=== PATIENT | female | born 1985 | race Caucasian/White ===

== ENCOUNTER 2020-04-15 08:33 | Outpatient (REF) | payer OTHER, SELFPAY ==
[2020-04-15 09:07] LABS: MANUAL DIFF FLAG NO
[2020-04-15 09:12] LABS: Basophils Absolute Auto 0.1 X10*3/uL (0.0-0.2); Basophils Percent Auto 0.4 % (0-2); Eosinophils Absolute Auto 0.2 X10*3/uL (0.0-0.4); Eosinophils Percent Auto 1.5 % (0-4); Hematocrit 41.5 % (37-47); Hemoglobin 13.1 g/dl (12.0-16.0); Imm Gran Abs Auto 0.06 X10*3/uL (0.00-0.03); Imm Gran Pct Auto 0.5 % (0.0-0.4); Lymphocytes Absolute Auto 2.7 X10*3/uL (1.2-4.9); Lymphocytes Percent Auto 21.2 % (20-40); Mean Corpuscular HGB Conc 31.6 g/dl (31.0-35.0); Mean Corpuscular Hemoglobin 25.7 pg (27.0-33.0); Mean Corpuscular Volume 81.4 fL (80-98); Mean Platelet Volume 11.5 fL (9.4-12.3); Monocytes Absolute Auto 0.7 X10*3/uL (0.1-1.2); Neutrophils Absolute Auto 9.2 X10*3/uL (2.0-8.3); Neutrophils Percent Auto 71.4 % (45-73); Platelet Count 257 X10*3/uL (160-400); Red Cell Distribution Width 14.6 % (11.0-16.0); White Blood Count 12.9 X10*3/uL (4.8-10.8)
[2020-04-15 09:51] LABS: Alanine Aminotransferase 15 U/L (0-31); Albumin Level 3.9 g/dL (3.5-5.0); Alkaline Phosphatase 83 U/L (39-117); Anion Gap 12 (12-20); Aspartate Amino Transferase 12 U/L (5-31); Bilirubin Total 0.3 mg/dL (0.0-1.0); Blood Urea Nitrogen 7 mg/dL (9-16); Calcium 8.8 mg/dL (8.4-10.2); Carbon Dioxide 28 mmol/L (22-29); Chloride 105 mmol/L (96-108); Cholesterol 200 mg/dL; Estimated Glomerular Filt Rate > 60; Glucose Fasting 107 mg/dL (60-99); HDL Cholesterol 33 mg/dL; LDL Cholesterol Calculated 152 mg/dl; Potassium 4.4 mmol/l (3.3-5.1); Sodium 141 mmol/L (135-145); Total Protein 7.2 g/dL (6.5-8.0); Triglycerides 78 mg/dL
[2020-04-15 10:16] LABS: Thyroid Stimulating Hormone 0.55 uIU/mL (0.32-4.0)
== END 2020-04-15 08:34 | disposition home or self-care (01) ==
LOC: HO.LAB 08:33
PROVIDERS: PCP Internal Medicine; Visit Provider Internal Medicine
DX: E03.9 Hypothyroidism, unspecified (principal); E11.9 Type 2 diabetes mellitus without complications; Z00.00 Encounter for general adult medical examination without abnormal findings
CPT/HCPCS: 36415; 80053; 80061; 84443; 85025

== ENCOUNTER 2021-07-25 14:44 | Emergency (ER) | payer OTHER, SELFPAY ==
[2021-07-25 14:56] VITALS: BP 136/91; PULSE 94; RESP 16; TEMP 36.1; O2SAT 100; BMI 39.4
--- NOTE | 2021-07-25 15:06 | ED_ITS ---
HPI - Wound/Laceration General Chief Complaint: Wound/Laceration Stated Complaint: thumb laceration Time Seen by Provider: 07/25/21 14:51 Source: patient Mode of arrival: ambulatory Limitations: no limitations History of Present Illness HPI narrative: 36 yo female right hand dominant here with laceration to left thumb after opening a present with a pocketknife and cutting her finger. Unknown last tetanus. No numbness, tingling, weakness, fevers, chills. Related Data Home Medications Medication Instructions Recorded Confirmed No Known Home Meds 03/12/20 06/18/20 Allergies Allergy/AdvReac Type Severity Reaction Status Date / Time No Known Allergies Allergy Verified 06/18/20 08:27 Review of Systems Review of Systems: Yes all other systems are reviewed and are negative Constitutional: Constitutional: Reports no additional constitutional complaints, Denies body ache(s), Denies chills, Denies fever(s), Denies headache(s) and Denies weakness Eyes: Eyes: Reports no additional eye complaints and Denies change in vision ENT: Reports system reviewed and no additional complaints, except as do cumented, Denies dizziness, Denies headache(s), Denies nasal congestion, Denies nasal discharge and Denies neck pain Cardiovascular: Cardiovascular: Reports no additional cardiovascular complaints, Denies chest pain, Denies leg edema and Denies dyspnea Respiratory: Respiratory: Reports no additional respiratory complaints, Denies cough and Denies dyspnea Gastrointestinal: Gastrointestinal: Reports no additional gastrointestinal complaints, Denies abdominal pain, Denies diarrhea, Denies nausea and Denies vomiting Genitourinary: Genitourinary: Reports no additional female genitourinary complaints and Denies urinary incontinence Musculoskeletal: Musculoskeletal: Reports no additional musculoskeletal complaints, Denies back pain, Denies arthralgias, Denies joint swelling, Denies neck pain, Denies numbness and Denies tingling Integumentary/Breasts: Skin/Breast: Reports system reviewed and no additional complaints, except as docu and Denies rash Comments: +lac Neurologic: Reports system reviewed and no additional complaints, except as documented, Denies Abnormal speech present, Denies dizziness, Denies headache(s), Denies numbness, Denies tingling and Denies weakness PMFSH Past Medical History Attestation statement: The following information was validated with the patient. Source: old records reviewed and nursing notes reviewed Medical History Varicose veins of bilateral lower extremities with pain Surgical History History of cholecystectomy History of excision of mass Family History Family History Father Diabetes Mother Arthritis Sister Carpal tunnel syndrome Brother Asthma Family/Other Diabetes Asthma Hypertension Social History Social History Alcohol intake: never Advance Directives: No Advance Directives Information Provided: No Patient : No Physical Exam Vital Signs: Vital Signs: Last Vital Signs Temp 97.0 F 07/25/21 14:56 Pulse 94 07/25/21 14:56 Resp 16 07/25/21 14:56 BP 136/91 H 07/25/21 14:56 Pulse Ox 100 07/25/21 14:56 BMI result Body Mass Index 39.4 Const: General: cooperative, healthy appearing, comfortable and no acute distress Orientation/consciousness: patient oriented x3 Limitations: no limitations HEENT: Head: Yes normal to inspection Ears: hearing grossly normal bilaterally General nose exam: Normal external nose present Face and sinus: Yes normal facial exam Mouth: Normal oral and palatal mucosa present Throat: Yes posterior oropharynx normal Eyes: General: appearance normal, both eyes and all related structures Pupils: Equal, round and reactive pupils present Neck: Neck: Yes normal visual inspection Chest: Chest palpation & inspection: normal inspection of the chest Resp: Effort & Inspection: normal respiratory effort Auscultation: clear to auscultation bilaterally Cardio: Rate: regular rate Rhythm: regular rhythm Peripheral pulses: Peripheral pulses 2+ throughout GI: Inspection: Yes normal to inspection Palpation (GI): Soft to palpation and nontender Auscultation: normal bowel sounds Back/Spine/Pelvis: Thoracic/Lumbar Spine: thoracic and lumbar spine normal to inspection Skin: General skin exam: no rashes or lesions noted Neuro: General: patient oriented x3, no focal motor deficits and normal sensation to monofilament Cranial nerves: Yes Equal, round and reactive pupils present Cognition (Neuro): normal cognition Speech: No Abnormal speech present Gait exam (Neuro): Normal gait present Motor exam (neuro): 5/5 motor strength present throughout Extrem: General: Yes normal to inspection Hand/finger images: 1. 2cm laceration. FROM. Bleeding controlled Course Course Course Narrative: 36 yo female right hand dominant here with laceration to left thumb after using a knife to open her daughters present and slipping. Superfical 2cm laceration noted. Soaked hand for 30 minutes in betadine/NS soak. After removed topical medical glue applied to the digit. Reviewed worrisome signs and symptoms when to return to the emergency. Comfortable discharge home. MDM - Wound/Laceration Medical Records Attestation: I reviewed the patient's medical records. Lab Data Attestation: I reviewed the patient's lab results. Procedures Laceration Laceration 1: Size (cm): 2 Description: linear Depth: simple, single layer Pre-repair: wound explored and irrigated extensively Skin layer closed with: other (skin glue ) Discharge Plan Discharge Clinical Impression: Laceration Patient Disposition: Home, Self-Care Instructions: Finger Laceration (ED) Additional Instructions: We used skin glue on your finger. Do not pick at it You may wash her hands normally but do not scrub at the digit You also received a tetanus shot Prescriptions: No Action No Known Home Meds 0RF Referrals: Vitor Diaz MD [Primary Care Provider] - 5 days (as needed) Interventions: ED Discharge Assessment Last Done: 07/25/21 15:41 Discharge Date/Time: 07/25/21 15:43
[2021-07-25] MEDS: Diphth,Pertus(ACell),Tet Adult 0.5 ML SYRINGE IM (15:21)
== END 2021-07-25 15:43 | disposition home or self-care (01) ==
LOC: HO.ED 15:14
PROVIDERS: Emergency Provider Emergency Medicine; PCP Internal Medicine
DX: S61.012A Laceration without foreign body of left thumb without damage to nail, initial encounter (principal); W26.0XXA Contact with knife, initial encounter; Y93.89 Activity, other specified; Y92.9 Unspecified place or not applicable; Y99.9 Unspecified external cause status
CPT/HCPCS: 12001; 90471; 90715; 99283; 99284

== ENCOUNTER 2022-03-03 09:41 | Emergency (ER) | payer OTHER, SELFPAY ==
[2022-03-03 10:31] VITALS: BP 158/90; PULSE 78; RESP 16; TEMP 36.6; O2SAT 99; BMI 38.3
--- NOTE | 2022-03-03 11:02 | ED.DENTAL ---
HPI - Dental/Oral General Chief complaint: Dental/Oral Stated complaint: ? Dental Abscess Sore Throat Time Seen by Provider: 03/03/22 10:53 History of Present Illness HPI Narrative: Patient complains of 2 days of worsening pain and swelling around a broken infected tooth in the right upper molar area The tooth has been broken for a long time, she does not have a dentist and is afraid of going to the dentist, she has no swelling under her tongue she has no difficulty breathing or swallowing has had no fever Related Data Previous Rx's Medication Instructions Recorded nicotine 21 mg/24 hr daily 1 patch transdermal DAILY #28 ea 07/30/21 transdermal patch acetaminophen 500 mg tablet 1,000 mg PO QID PRN pain #30 tabs 03/03/22 amoxicillin 875 mg-potassium 1 tab PO Q12H 7 days #14 tabs 03/03/22 clavulanate 125 mg tablet ibuprofen 600 mg tablet 600 mg PO Q6H PRN pain #20 tabs 03/03/22 lorazepam 1 mg tablet (Ativan) 1 mg PO BID PRN anxiety #7 tabs 03/03/22 oxycodone 5 mg tablet 5 mg PO Q6H PRN pain #14 tabs 03/03/22 Allergies Allergy/AdvReac Type Severity Reaction Status Date / Time No Known Allergies Allergy Verified 03/03/22 10:35 Review of Systems Review of Systems: Positive for dental pain and swelling Negative no fever no chills no dizziness or weakness no fainting no feeling faint no headache no neck pain no chest pain no shortness of breath no difficulty breathing or swallowing no sore throat no rash Yes all other systems are reviewed and are negative PMFSH Past Medical History Source: nursing notes reviewed Medical History Varicose veins of bilateral lower extremities with pain Surgical History History of cholecystectomy History of excision of mass Family History Family History Father Diabetes Mother Arthritis Sister Carpal tunnel syndrome Brother Asthma Family/Other Diabetes Asthma Hypertension Social History Social History Housing: Apartment Alcohol intake: never Patient Tobacco Use Status: Current everyday Tobacco user Tobacco use type: Cigarette Cigarette Packs Per Day: 0.5 e-Cigarette/Vaping Use: Never Used Second Hand Smoke Exposure: No Advance Directives: No Advance Directives Information Provided: Yes service: No Current occupational status: employed Current occupational exposures/hazards: No Cognitive needs: No Hearing needs: No Vision needs: Yes Physical Exam Vital Signs: Vital Signs: Last Vital Signs Temp 97.8 F 03/03/22 10:31 Pulse 78 03/03/22 10:31 Resp 16 03/03/22 10:31 BP 158/90 H 03/03/22 10:31 Pulse Ox 99 03/03/22 10:31 O2 Del Method 03/03/22 10:31 BMI result Body Mass Index 38.3 General appearance no acute distress Dental exam there is a broken tooth with some mild swelling in the upper right molar there was no fluctuant abscess to drain but there was a small opening with a small quantity of pus draining, there is facial swelling but no redness in the area of the right upper maxilla there is no impairment of breathing and swallowing there is no trismus there is no swelling or tenderness under the tongue, voice is normal The pharynx is clear no redness swelling or exudate, mucous membranes moist Neck is supple Respiratory no distress Extremities full range of motion x4 Skin no rash Course Course Course Narrative: Patient was treated with antibiotic for a draining dental abscess, given a list of dentists to follow up, she does have a fear of dentist so I wrote her for some Ativan as for her upcoming dental visits and patient was discharged Medications Administered Discontinued Medications Generic Name Dose Route Start Last Admin Trade Name Lora PRN Reason Stop Dose Admin Amoxicillin/Clavulanate Potassium 875 mg 03/03/22 10:59 03/03/22 11:08 Amoxicillin/Potassium Clav 875 Mg Tablet PO 03/03/22 11:00 875 mg ONCE ONE Administration Ibuprofen 600 mg 03/03/22 10:59 03/03/22 11:07 Ibuprofen 600 Mg Tablet PO 03/03/22 11:00 600 mg ONCE ONE Administration Oxycodone HCl 5 mg 03/03/22 10:59 03/03/22 11:08 Oxycodone Hcl Immed Release 5 Mg Tablet PO 03/03/22 11:00 5 mg ONCE ONE Administration Discharge Plan Discharge Clinical Impression: Dental abscess Patient Disposition: Home, Self-Care Additional Instructions: The infected tooth is draining a small amount of pus, rinse with salt water you can gently massage the area Follow closely with dentist Return any time for worse pain and swelling, difficulty swallowing, swelling under the tongue, fever, any sign of worsening infection Prescriptions: New amoxicillin-pot clavulanate 875-125 mg tablet 1 tab PO Q12H 7 Days Qty: 14 0RF acetaminophen 500 mg tablet 1,000 mg PO QID PRN (Reason: pain) Qty: 30 0RF ibuprofen 600 mg tablet 600 mg PO Q6H PRN (Reason: pain) Qty: 20 0RF oxycodone 5 mg tablet 5 mg PO Q6H PRN (Reason: pain) Qty: 14 0RF Rx Instructions: Partial Fill upon patient request. lorazepam [Ativan] 1 mg tablet 1 mg PO BID PRN (Reason: anxiety) Qty: 7 0RF Rx Instructions: To be used before dental visits for anxiety, may cause drowsiness so no driving for 6 hours after taking this medication No Action nicotine 21 mg/24 hr patch 24 hour 1 patch transdermal DAILY Qty: 28 4RF Interventions: ED Discharge Assessment Last Done: 03/03/22 11:36 Discharge Date/Time: 03/03/22 11:40
[2022-03-03] MEDS: Ibuprofen 600 MG TABLET PO (11:07)
[2022-03-03] MEDS: oxyCODONE HCl Immed Release 5 MG TABLET PO (11:08)
[2022-03-03] MEDS: Amoxicillin/Potassium Clav 875 MG TABLET PO (11:08)
--- OUTSIDE RECORDS SUMMARY | 2022-03-03 11:16 | XMS_ITS | Continuity of Care Document ---
:1985 Author Organization [facility] Address [address] [place] [address]- Care Team Providers Name Role Phone Not on Staff, PCP Primary Care Physician Unavailable En[place] [facility] [place] 07/02/20 - 08/23/20 [facility] [address] [place] [id number] Attending Physician: Baltazar Hogan MD Admitting Physician: Baltazar Hogan MD Referring Physician: Baltazar Hogan MD Allergies, Adverse Reactions, Alerts No Known Medication Allergies Medications Albuterol 90 mcg Inhaler PRN, Maintenance, 05/01/14 15:50:01 Start Date: 05/01/14 Status: OrderedIbuprofen PRN, Maintenance, as needed for pain, 05/01/14 15:51:15 Start Date: 05/01/14 Status: OrderedTylenol Caplet = 650 mg, By Mouth, Every 4 hours, PRN as needed for pain, 0 Refills, Maintenance, 05/01/14 15:50:40 Start Date: 05/01/14 Status: Ordered Social History Social History Type Response Smoking Status Current every day smoker entered on: 05/17/14 Sex
== END 2022-03-03 11:40 | disposition home or self-care (01) ==
PROVIDERS: Emergency Provider Emergency Medicine; PCP Internal Medicine
DX: K04.7 Periapical abscess without sinus (principal); Z79.899 Other long term (current) drug therapy
CPT/HCPCS: 41800; 99283

== ENCOUNTER 2023-01-27 11:31 | Outpatient (AMB) | payer OTHER, SELFPAY ==
[2023-01-27 11:46] VITALS: BP 126/82; PULSE 88; O2SAT 96; BMI 40.7
--- NOTE | 2023-01-27 11:46 | MHC.PC.OV ---
Vital Signs 01/27/23 11:46 Height 5 ft 4 in Weight 237 lb BMI 40.7 BP 126/82 Blood Pressure Location Lt brachial Position Sitting Pulse 88 Pulse Source Pulse Oximeter Temp Source Skin Pulse Oximetry (%) 96 Oxygen Delivery Method Room Air Intake Visit Reasons: Transfer of care tara/ Rodrigue on neck Project Facilitator Required: No Allergies No Known Allergies Allergy (Verified 01/27/23 11:58) Medication List - Last Reconciled 01/27/23 by ÁNGEL Plummer No Known Home Meds Tobacco use date assessed: 01/27/23 Dental Screening Dental Screen Date: 01/27/23 Did you have a dental visit in the last 12 months?: No Did you have a dental problem in the last 6 months where you did not have access to dental care?: No HPI Transfer of care tara/ Rodrigue on neck HPI Details Patient is a 37-year-old female who presents today to transfer care from Dr. Diaz. Medical history significant for varicose veins of bilateral lower extremities-would like to be seen by vascular provider, obesity-interested in weight management referral, depression-reports over eating lately-interested in pharmacological intervention-would like to see counseling-denies SI or HI, anxiety, ongoing right knee pain-reports she had referral for physical therapy although she did not go-would like to have new referral for PT-reports taking [id number] ibuprofen with minimal improvement in pain-reports pain is worse with walking and radiate down to her leg- denies injury. In addition, patient reports that in 2013 mass was removed from the right side of her face by ENT specialist, patient reports that she started feeling bilateral neck masses lately as well for the past 1 year, also reports random sharp pains her neck and ears. No shortness of breath or chest pain. [facility] Medical History Varicose veins of bilateral lower extremities with pain Surgical History History of excision of mass History of cholecystectomy Family History Father Diabetes Mother Arthritis Sister Carpal tunnel syndrome Brother Asthma Family/Other Diabetes Asthma Hypertension Social History Housing: Apartment Alcohol intake: never Patient Tobacco Use Status: Current everyday Tobacco user Tobacco use type: Cigarette Cigarette Packs Per Day: 0.5 e-Cigarette/Vaping Use: Never Used Second Hand Smoke Exposure: No service: No Current occupational status: employed Current occupational exposures/hazards: No Cognitive needs: No Hearing needs: No Vision needs: Yes Questionnaire PHQ-9 Over the last 2 weeks, how often have you been bothered by any of the following problems? 1. Little interest or pleasure in doing things: several days 2. Feeling down, depressed, or hopeless: several days 3. Trouble falling or staying asleep, or sleeping too much: more than half the days 4. Feeling tired or having little energy: not at all 5. Poor appetite or overeating: more than half the days 6. Feeling bad about yourself - or that you are a failure or have let yourself or your family down: not at all 7. Trouble concentrating on things, such as reading the newspaper or watching television: several days 8. Moving or speaking so slowly that other people could have noticed. Or the opposite - being so fidgety or restless that you have been moving around a lot more than usual: not at all 9. Thoughts that you would be better off or of hurting yourself in some way: not at all Total score: 7 Depression Screening Interpretation: Positive Depression Screening Follow-up: New Medication prescribed Depression Screening Done: Yes 58608 - PHQ-9 Billing: Yes Source: Developed by Drs. Jose Angel Blanc, Angela Rowan, Steven Mo and colleagues, with an educational balaji from [employer]. Thrive Questionnaire Date Thrive assessed: 01/27/23 I am a: Patient What is your living situation today?: I have a steady place to live Within the past 12 months, did the food you bought not last and you didn't have the money to get more?: Never true Within the past 12 months, did you worry whether your food would run out before you got money to buy more?: Never true Do you have trouble paying for medicines?: No Do you have trouble getting transportation to medical appointments?: No Do you have trouble paying your heating and electricity bill?: No Do you have trouble taking care of your child, family member or friend?: No Do you have trouble with day-to-day activities such as bathing, preparing meals, shopping, managing finances, etc.?: No Are you currently unemployed and looking for a job?: No Are you interested in more education?: No Currently or been in a relationship where the following occur: no concerns reported AUDIT C Alcohol Use Questionnaire (AUDIT-C) 1. How often do you have a drink containing alcohol?: Never Total Score: 0 Score Reviewed/Action Taken: No ASHLEE-7 AMB Questionnaire ASHLEE-7 Date ASHLEE - 7 assessed: 01/27/23 Feeling nervous, anxious, or on edge: 3 = Nearly every day Not being able to stop or control worryin = Nearly every day Worrying too much about different things: 2 = More than half the days Trouble relaxin = Several days Being so restless that it is hard to sit still: 1 = Several days Becoming easily annoyed or irritable: 1 = Several days Feeling afraid as if something awful might happen: 0 = Not at all Total ASHLEE-7 score (0-4 normal; 5-9 mild; 10-14 moderate; 15-21 severe): 11 Source: Developed by Drs. Jose Angel Blanc, Angela Rowan, Steven Mo and colleagues, with an educational balaji from [employer]. ASHLEE-7 Assessment Billing ASHLEE-7 Assessment Tool: ASHLEE-7 Assessment 91058 Review of Systems Const Denies body aches, Denies chills, Denies fever(s) and Denies headache(s) Eyes Denies change in vision ENT Denies dizziness, Denies otalgia, Denies headache(s), Denies nasal discharge, Denies sinus pain and Denies sore throat Card Denies chest pain, Denies edema, Denies lightheadedness and Denies dyspnea Resp Denies cough, Denies dyspnea and Denies wheezing GI Denies constipation, Denies diarrhea, Denies nausea and Denies vomiting Denies dysuria Musc Denies myalgias and Reports arthralgias Skin/Breast Reports as per HPI and Denies rash Neuro Denies dizziness and Denies headache(s) Aller/Immun Denies wheezing Physical exam (Primary Care) Vital Signs: Last Vital Signs Pulse 88 01/27/23 11:46 BP 126/82 01/27/23 11:46 Pulse Ox 96 01/27/23 11:46 Oxygen Delivery Method Room Air 01/27/23 11:46 BMI result Body Mass Index 40.7 Tobacco/Smoking Status: Tobacco use Status Tobacco use date assessed 01/27/23 01/27/23 11:55 Patient Tobacco Use Status Current everyday Tobacco 01/27/23 11:55 Tobacco use type Cigarette 01/27/23 11:55 e-Cigarette/Vaping Use Never Used 01/27/23 11:55 PHQ-9: PHQ-9 Score PHQ-9: Total score 7 01/27/23 11:55 Depression Screening Interpretation: Positive Depression Screening Follow-up: New Medication prescribed Thrive Assessment: Date of Thrive Assessment Date Thrive assessed 01/27/23 01/27/23 11:55 Currently or been in a relationship where the following occur: no concerns reported Const General: cooperative and no acute distress Orientation/consciousness: patient oriented x3 HENMT Head: Yes normocephalic and Yes atraumatic Ears: TM's normal bilaterally Face and sinus: Yes sinuses nontender Mouth: oropharynx normal and moist mucous membranes Throat: Yes posterior oropharynx normal Eyes General: appearance normal, both eyes and all related structures Pupils: Equal, round and reactive pupils present EOM: EOMs intact bilaterally Neck Neck: Yes normal visual inspection, Yes full ROM and Yes no lymphadenopathy Thyroid: Thyroid normal Neck images: 1. Left lateral neck about 1 cm nontender lump noted, skin is intact 2. Right lateral neck scar noted from previous surgery, no palpable lump noted, although patient reports she can feel a lump there Resp Effort & Inspection: normal respiratory effort and able to speak in complete sentences Auscultation: clear to auscultation bilaterally, no crackles, no rales, no rhonchi and no wheezes Cardio Rate: regular rate Rhythm: regular rhythm Heart sounds: S1 normal heart sound present, S2 normal heart sound present and no murmurs GI Palpation (GI): Soft to palpation, not firm, nontender, no guarding, not rigid and no hepatosplenomegaly Auscultation: normal bowel sounds General: No CVA tenderness Back/Spine/Pelvis Back: No CVA tenderness Skin Other: Right lower extremity with varicose veins noted General skin exam: no rashes or lesions noted Neuro General: patient oriented x3 Cranial nerves: Yes Equal, round and reactive pupils present Gait exam (Neuro): Normal gait present Extrem General: Yes full ROM and No edema Right lower extremity: knee Details: normal to inspection, tenderness (Lateral aspect) and normal ROM; no swelling, no ecchymosis, no crepitus, no deformity and no unusual warmth Assessment and Plan Assessment & Plan (1) Right knee pain: Code(s): M25.561 - Pain in right knee Plan: Suspect musculoskeletal in origin Physical therapy referral Patient is to continue ibuprofen 600 mg every 8 hours as needed Encouraged heat/cold packs p.r.n. (2) Lump of skin: Comment: neck Code(s): R22.9 - Localized swelling, mass and lump, unspecified Plan: 1. Left lateral neck about 1 cm nontender lump noted, skin is intact 2. Right lateral neck scar noted from previous surgery, no palpable lump noted, although patient reports she can feel a lump there Will obtain neck ultrasound (3) Anxiety: Code(s): F41.9 - Anxiety disorder, unspecified Plan: Same as below (4) Depression: Code(s): F32.A - Depression, unspecified Qualifiers: Depression Type: other depression Qualified Code(s): F32.89 - Other specified depressive episodes Plan: Start sertraline 25 mg daily-educated about possible adverse reactions and when to notify provider Counseling referral Follow-up in 6 weeks (5) Obesity: Code(s): E66.9 - Obesity, unspecified Qualifiers: Obesity type: due to excess calories Obesity classification: adult class 3 (BMI >= 40) Serious obesity comorbidity presence: without serious comorbidity Body mass index: BMI 40.0-44.9 Qualified Code(s): E66.01 - Morbid (severe) obesity due to excess calories; Z68.41 - Body mass index [BMI] 40.0-44.9, adult Plan: Weight management referral Encouraged healthy food choices and exercise as tolerated (6) Varicose veins of bilateral lower extremities with pain: Code(s): I83.813 - Varicose veins of bilateral lower extremities with pain Plan: Vascular surgery referral for an evaluation and treatment Orders: Orders PT Evaluation and Treatment Today M25.561 - Pain in right knee TSH reflex Free T4 Today F32.A - Depression, unspecified Comprehensive [place]. Panel Fast Today F32.A - Depression, unspecified US soft tiss head and/or neck Today R22.9 - Localized swelling, mass and lump, unspecified Vitamin D 25-OH Total Today F32.A - Depression, unspecified Vitamin B12 and Folate Today F41.9 - Anxiety disorder, unspecified Lipid Panel Today F32.A - Depression, unspecified Complete Blood Count Auto Diff Today F32.A - Depression, unspecified Referrals Counseling Referral F32.A - Depression, unspecified, F41.9 - Anxiety disorder, unspecified Medical Weight Management Referral E66.9 - Obesity, unspecified Vascular Surgery Referral I83.813 - Varicose veins of bilateral lower extremities with pain Medications: New ibuprofen 600 mg PO Q8H PRN 30 tabs 0RF pain M25.561 - Pain in right knee sertraline 25 mg PO DAILY 30 tabs 1RF F32.A - Depression, unspecified, F41.9 - Anxiety disorder, unspecified Coding Level of Care Code Est Pt Level 4 (47006) Diagnoses Right knee pain M25.561 Lump of skin R22.9 Anxiety F41.9 Other depression F32.89 Depression Type: other depression Class 3 severe obesity due to excess calories without serious comorbidity with body mass index (BMI) of 40.0 to 44.9 in adult E66.01; Z68.41 Obesity type: due to excess calories Obesity classification: adult class 3 (BMI >= 40) Serious obesity comorbidity presence: without serious comorbidity Body mass index: BMI 40.0-44.9 Varicose veins of bilateral lower extremities with pain I83.813 Additional Codes ASHLEE-7 Assessment Billing - ASHLEE-7 Assessment Tool: ASHLEE-7 Assessment 79374 ([id number])
== END 2023-01-27 12:19 | disposition home or self-care (01) ==
PROVIDERS: PCP Nurse Practitioner Family; Visit Provider Nurse Practitioner Family
DX: M25.561 Pain in right knee (principal); E66.01 Morbid (severe) obesity due to excess calories; Z68.41 Body mass index [BMI] 40.0-44.9, adult; R22.9 Localized swelling, mass and lump, unspecified; F41.9 Anxiety disorder, unspecified; F32.89 Other specified depressive episodes; I83.813 Varicose veins of bilateral lower extremities with pain
CPT/HCPCS: 99214

== ENCOUNTER 2023-02-14 15:29 | Outpatient (REF) | payer OTHER, SELFPAY ==
--- NOTE | ~2023-02-14 | US_ITS ---
EXAMINATION: US SOFT TISSUE NECK CLINICAL INFORMATION: Bilateral neck lumps as indicated by patient. COMPARISON: None available. TECHNIQUE: Ultrasound of the neck soft tissues is performed with high- frequency olvera-scale imaging and color Doppler. FINDINGS: Targeted ultrasound images were obtained by the marine welder of the area of concern as indicated by the patient in the right neck at level 2 and at the left neck at level 2. Radiologist was not in attendance. Images were later provided for interpretation. BILATERAL NECK SOFT TISSUES: Right neck level 2 node measures 2.4 x 1.0 x 1.8 cm and demonstrates a fatty hilum, normal cortical thickness. Left neck level 2 nodes measure 1.5 x 0.5 x 0.9 cm and 1.4 x 0.9 x 1.8 cm. These nodes demonstrate echogenic mackenzie and normal cortical thickness. US/US soft tiss head and/or neck IMPRESSION: Prominent bilateral nodes in the bilateral areas of concern indicated by the patient in the bilateral neck regions at level 2. Correlation with clinical exam recommended to determine further management. Follow up ultrasound in 3 months recommended.
== END 2023-02-14 15:30 | disposition home or self-care (01) ==
LOC: HO.US 15:29
PROVIDERS: PCP Nurse Practitioner Family; Visit Provider Nurse Practitioner Family
DX: R22.9 Localized swelling, mass and lump, unspecified (principal)
CPT/HCPCS: 76536

== ENCOUNTER 2023-03-22 09:10 | Outpatient (AMB) | payer OTHER, SELFPAY ==
--- NOTE | 2023-03-22 09:25 | A.OFFVIS_ITS ---
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 Does have some buldging VV that are rope like on Right LE. States bilateral LE swelling. Started 10 years ago, worsening as the years go on. 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 Complaints include pain over varicosities, swelling of lower extremities, cramping, fatigue, and heaviness of the lower extremities. It has been affecting there daily activities including walking. It is noted more so in right leg. Of note continues to smoke a half pack per day and is nondiabetic Patient denies any previous venous surgery or injections. Patient denies any history of DVT/ PE. Patient denies any history of phlebitis. Trial of compression includes - [id number] They now present for vascular evaluation regarding their varicose veins. [facility] Medical History Varicose veins of bilateral lower extremities with pain Surgical History History of excision of mass History of cholecystectomy Family History Father Diabetes Mother Arthritis Sister Carpal tunnel syndrome Brother Asthma Family/Other Diabetes Asthma Hypertension Social History Housing: Apartment Alcohol intake: never Patient Tobacco Use Status: Current everyday Tobacco user Tobacco use type: Cigarette Cigarette Packs Per Day: 0.5 e-Cigarette/Vaping Use: Never Used Second Hand Smoke Exposure: No service: No Current occupational status: employed Current occupational exposures/hazards: No Cognitive needs: No Hearing needs: No Vision needs: Yes Review of Systems Const Reports as per HPI ENT Reports no additional complaints Card Denies chest pain, Denies chest pain at rest and Denies chest pain with activity Resp Denies chest congestion and Denies cough GI Reports no additional complaints Musc Details: pain over varicosities, aching of lower extremities, swelling, cramping, heaviness and tiredness, itching Denies abnormal gait Skin/Breast Reports pruritus and Denies wounds Neuro Reports no additional complaints and Denies abnormal gait Psych Denies no additional complaints Physical Exam Vital Signs: BMI result Body Mass Index 40.7 Const General: cooperative, healthy appearing and comfortable Orientation/consciousness: oriented to person, oriented to place and oriented to time Neck Carotids: no bruits Chest Chest palpation & inspection: normal inspection of the chest and normal palpation of entire chest wall Resp Effort & Inspection: normal respiratory effort and able to speak in complete sentences Cardio Rate: regular rate Heart sounds: S1 normal heart sound present and S2 normal heart sound present Peripheral pulses: Peripheral pulses 2+ throughout GI Inspection: Yes normal to inspection Skin Other: +2 edema, large rope-like varicosities greater than 4 mm CEAP Classification C4 - skin color changes Ep - Etiology Primary As - superficial veins P - reflux General skin exam: dry skin Neuro General: oriented to person, oriented to place and oriented to time Extrem Right lower extremity: full ROM, normal capillary refill and edema Left lower extremity: full ROM, normal capillary refill and edema Psych Mental Status: mental status grossly normal Assessment & Plan Assessment & Plan (1) Varicose veins of right lower extremity with inflammation: Code(s): I83.11 - Varicose veins of right lower extremity with inflammation Plan: In short, the patient has evidence of venous insufficiency. I have discussed the pathophysiology with the patient. In addition I have provided informational material regarding venous disease to the patient. We have di scussed conservative measures including compression, elevation, and exercise. I have also provided a handout regarding appropriate use of compression stockings and where to purchase good compression stockings as well. I have taken the liberty of ordering venous insufficiency testing with the patient. They will follow up with me after testing. The patient had an opportunity to ask questions regarding the treatment plan. All questions were answered. Imaging studies, laboratory studies and physical exam results were discussed and reviewed in detail. No major barriers to understanding were identified. The patient expressed understanding and agreement with the above treatment plan. The patient is aware they should contact our office by phone for worsening of the current condition or the appearance of new symptoms. Thank you for allowing me to participate in the vascular care of this patient. If you have any questions or concerns regarding the treatment for the above condition please do not hesitate to contact me. The office telephone contact is [phone]. This note is constructed using voice recognition software. While every effort has been made to ensure accuracy, red lead burner errors may have been included. Thank you for allowing me to participate in the care of your patient. Yours sincerely, Andrea Alicea MD, FACS, R.P.V.I. Orders: Orders US venous duplex LE BI 1 Week I83.11 - Varicose veins of right lower extremity with inflammation Coding Level of Care Code New Pt Level 4 (79069) Diagnoses Varicose veins of right lower extremity with inflammation I83.11
[2023-03-22 09:26] VITALS: BMI 40.7
== END 2023-03-22 10:13 | disposition home or self-care (01) ==
PROVIDERS: PCP Nurse Practitioner Family; Visit Provider Surgery Vascular Surgery
DX: I83.11 Varicose veins of right lower extremity with inflammation (principal)
CPT/HCPCS: 99203

== ENCOUNTER → 2023-03-22 09:10 | Outpatient (BNVA) | payer OTHER, SELFPAY | PROVIDERS: PCP Nurse Practitioner Family; Visit Provider Surgery Vascular Surgery | DX: I83.11 Varicose veins of right lower extremity with inflammation (principal) | CPT/HCPCS: 99202 ==

== ENCOUNTER 2023-07-20 08:43 | Emergency (ER) | payer OTHER, SELFPAY ==
[2023-07-20 08:55] VITALS: BP 150/78; PULSE 100; RESP 18; TEMP 37.3; O2SAT 98; BMI 42.0
[2023-07-20 09:49] LABS: Influenza A PCR POSITIVE (Negative); Influenza B PCR NEGATIVE (Negative); Resp Syncy Virus RNA Qual PCR NEGATIVE (Negative); SARS COV2 PCR INHOUSE NEGATIVE (Negative)
--- NOTE | 2023-07-20 10:08 | ED.URI ---
HPI - URI/Sore Throat General Chief Complaint: Upper Respiratory Symptoms Stated Complaint: Diarrhea Fever Cough Time Seen by Provider: 07/20/23 09:51 Source: patient Mode of arrival: ambulatory Limitations: no limitations History of Present Illness HPI Narrative: This is a 38-year-old female history of anxiety, depression, obesity presenting to the emergency department for evaluation of fatigue, malaise, myalgia, epigastric pain, nausea, vomiting, diarrhea, sore throat, wheezing, chest pressure ongoing for the past 3 days. Daughter at home is sick with influenza. She denies chest pain, shortness of breath, headache, vision changes, dizziness and weakness at this time. Has not taken anything for symptoms. Related Data Previous Rx's Medication Instructions Recorded ibuprofen 600 mg tablet 600 mg PO Q8H PRN pain #30 tabs 01/27/23 sertraline 25 mg tablet 25 mg PO DAILY #30 tabs 01/27/23 amoxicillin 500 mg tablet 500 mg PO BID 7 days #14 tabs 07/10/23 acetaminophen 325 mg capsule 325 mg PO Q4H PRN pain #30 caps 07/20/23 (Tylenol) ibuprofen 600 mg tablet 600 mg PO Q6H PRN fever or pain 07/20/23 #30 tabs loperamide 2 mg capsule 2 mg PO Q6H PRN loose stool #20 07/20/23 caps ondansetron 4 mg disintegrating 4 mg PO Q6H PRN nausea and 07/20/23 tablet vomiting #14 tabs Allergies Allergy/AdvReac Type Severity Reaction Status Date / Time No Known Allergies Allergy Verified 03/22/23 09:29 Review of Systems Review of Systems: Yes all other systems are reviewed and are negative [facility] Past Medical History Attestation statement: The following information was validated with the patient. Source: old records reviewed and nursing notes reviewed Medical History Varicose veins of bilateral lower extremities with pain Surgical History History of excision of mass History of cholecystectomy Family History Family History Father Diabetes Mother Arthritis Sister Carpal tunnel syndrome Brother Asthma Family/Other Diabetes Asthma Hypertension Social History Social History Housing: Apartment Alcohol intake: never Patient Tobacco Use Status: Current everyday Tobacco user Tobacco use type: Cigarette Cigarette Packs Per Day: 0.5 e-Cigarette/Vaping Use: Never Used Second Hand Smoke Exposure: No Advance Directives: No Advance Directives Information Provided: No service: No Current occupational status: employed Current occupational exposures/hazards: No Cognitive needs: No Hearing needs: No Vision needs: Yes Physical Exam Vital Signs: Vital Signs: Last Vital Signs Temp 99.2 F 07/20/23 08:55 Pulse 100 07/20/23 08:55 Resp 18 07/20/23 08:55 BP 150/78 H 07/20/23 08:55 Pulse Ox 98 07/20/23 08:55 O2 Del Method Room Air 07/20/23 08:55 BMI result Body Mass Index 42.0 Vital signs stable Appearance: Alert.? Oriented X3.? No acute distress.? Head: Normocephalic, atraumatic, no step-offs or deformities Eyes: Pupils equal, round and reactive to light.? ENT: Pharynx normal.? Neck: Normal inspection.? Neck supple.? CVS: Normal heart rate and rhythm.? Pulses normal.? Respiratory: No respiratory distress.? Breath sounds normal.? Abdomen: Soft and nontender.? Skin: Skin warm and dry.? Normal skin color.? Normal skin turgor.? Extremities: No lower extremity edema.? No calf ttp. 5/5 strength to bilateral upper and lower extremities Neuro: Oriented X 3.? No motor deficit.? No sensory deficit. CN 2-12 intact Course Reevaluation(s) Reevaluation #1: Educated patient on diagnosis and treatment plan, answered all question, patient verbalizes understanding. At this time patient will be discharged home, advised to return with new or worsening symptoms. Educated on worrisome signs and symptoms and when to return. At this time I feel comfortable discharge home. Medical Decision Making Medical Decision Making [facility] Narrative: 1011 38-year-old female presents with fatigue, malaise, myalgia, epigastric pain, nausea, vomiting, diarrhea, sore throat, wheezing, chest pressure ongoing for the past 3 days. Physical exam benign. However, patient sounds congested. Concerns for flu versus COVID versus RSV versus viral illness. No signs of strep pharyngitis, peritonsillar abscess, epiglottitis, retropharyngeal abscess, threat to airway, ACS, PE, acute respiratory distress, pneumonia, acute abdomen. Viral testing positive for influenza. Plan at this time discharge with supportive measures. Differential Diagnosis Differential Diagnoses: The differential diagnosis associated with the presentation includes Concerns for flu versus COVID versus RSV versus viral illness. No signs of strep pharyngitis, peritonsillar abscess, epiglottitis, retropharyngeal abscess, threat to airway, ACS, PE, acute respiratory distress, pneumonia, acute abdomen. Admission/Observation Consideration of admission/observation: Escalation of care including admission/observation considered No indication Lab Data MDM Lab Attestation statement: I reviewed the patient's lab results. Labs: Lab Results 07/20/23 Range/Units 08:59 Influenza Type A (PCR) POSITIVE A (Negative) Influenza Type B (PCR) NEGATIVE (Negative) RSV RNA Qual (PCR) NEGATIVE (Negative) SARS-CoV-2 RNA (RT-PCR) NEGATIVE (Negative) External Record Review External record reviewed: Inpatient record, Office record, Outpatient record, Prior outpatient labs, Prior outpatient radiology, Primary care record and Outside ED record Prescription Management I considered prescription management with: Pain Medication (Ibuprofen, Tylenol) and Other (Loperamide and Zofran) Chronic Conditions Patient?s care impacted by: Other (Anxiety, depression, obesity) Discharge Plan Discharge Clinical Impression: Influenza Patient Disposition: Home, Self-Care Instructions: Influenza (ED) Additional Instructions: Take your medications as prescribed. If you were prescribed antibiotics today, it is important that you take your medication to their entirety, do not skip any doses, do not finish them early. Follow-up with your primary care provider this week. Return to the emergency department with new or worsening symptoms. Such as fevers, chills, chest pain, shortness of breath, nausea, vomiting, dizziness, headache, vision changes, lethargy In case of emergency call 911 You can take ibuprofen every 6 hours Tylenol every 4 as needed for fever, pain or discomfort. Prescriptions: New loperamide 2 mg capsule 2 mg PO Q6H PRN (Reason: loose stool) Qty: 20 0RF ibuprofen 600 mg tablet 600 mg PO Q6H PRN (Reason: fever or pain) Qty: 30 0RF ondansetron 4 mg tablet,disintegrating 4 mg PO Q6H PRN (Reason: nausea and vomiting) Qty: 14 0RF acetaminophen [Tylenol] 325 mg capsule 325 mg PO Q4H PRN (Reason: pain) Qty: 30 0RF No Action amoxicillin 500 mg tablet 500 mg PO BID 7 Days Qty: 14 0RF sertraline 25 mg tablet 25 mg PO DAILY Qty: 30 1RF ibuprofen 600 mg tablet 600 mg PO Q8H PRN (Reason: pain) Qty: 30 0RF Referrals: Angie Cortez MD [Primary Care Provider] - 2 days Stand Alone Forms: Work/School Release
[2023-07-20 10:37] VITALS: BP 148/89; PULSE 96; RESP 18; TEMP 37.4; O2SAT 97
== END 2023-07-20 10:38 | disposition home or self-care (01) ==
PROVIDERS: Emergency Provider Emergency Medicine Emergency Medical Services; PCP Internal Medicine
DX: J10.1 Influenza due to other identified influenza virus with other respiratory manifestations (principal); R53.83 Other fatigue; R11.2 Nausea with vomiting, unspecified
CPT/HCPCS: 0241U; 99283

== ENCOUNTER 2024-09-24 08:38 | Emergency (ER) | payer OTHER, SELFPAY ==
--- NOTE | ~2024-09-24 | CT_ITS ---
EXAMINATION: CT SOFT TISSUE NECK WITH CONTRAST CLINICAL INFORMATION: Positive white count, strep positive, left neck pain, rule out abscess COMPARISON: 09/28/2018. TECHNIQUE: Following the intravenous administration of 60 mL of Omnipaque 350 intravenous contrast, helical imaging was performed in the axial plane with generation of coronal and sagittal reformatted images. This CT examination was performed using dose optimization techniques as appropriate, variously including the following: *Automated exposure control *Adjustment of mA and/or kV according to patient size (this includes techniques or standardized protocols for targeted exams where dose is matched to indication/reason for exam; i.e. extremities or head) *Use of iterative reconstruction technique FINDINGS: Lymph Nodes: -Reactive lymphadenopathy in the left greater than right anterior cervical chains. This is most prominent in the jugulodigastric regions. Carotid Sheath Structures: -Normal. Salivary Glands: -Atrophy or postoperative changes of right parotid gland. -Left parotid gland and submandibular glands appear normal. Tongue Base/Floor of Mouth: -Normal Mucosal Space: -Hypertrophy of the pontine tonsils bilaterally without definite peritonsillar abscess. There is crypt enhancement. -Mild adenoidal soft tissues prominence. -Mild prominence of the lingula tonsils. -Aryepiglottic folds and epiglottis appear normal. Visceral Space: -Thyroid gland: Globally enlarged without discrete nodule. -Larynx and true vocal cords appear normal. -The trachea is patent. Retropharangeal Space: -Normal. No abnormal fluid collection. Parapharyngeal Fat Planes: -Normal. Dice Maker Spaces: -Normal. Anterior Cervical Space: -Normal. Imaged Intracranial Contents: -No mass effect, edema, or abnormal enhancement. Cortical and dural venous sinuses are patent. The skull base is normal. Globes and Orbits: -Normal. Paranasal Sinuses/Mastoids/Tympanic Spaces: -Normally aerated bilaterally. Lung Apices and Superior Mediastinal Structures: -Imaged lung apices are clear and superior mediastinal structures are normal. Bony Structures: -No suspicious bone lesions. No fractures. -Normal TM joints. CT/CT soft tissue neck w IV con IMPRESSION: 1. Tonsillitis without evidence of peritonsillar abscess. 2. Global enlargement of the thyroid gland without discrete nodules seen. 3. Reactive lymphadenopathy in the anterior cervical chains bilaterally, left greater than right. 4. Atrophy or postoperative changes of the right parotid gland. Electronically signed by: Juan Mcdaneil MD 09/24/2024 02:30 PM EDT
[2024-09-24 08:56] VITALS: BP 132/87; PULSE 112; RESP 18; TEMP 36.9; O2SAT 98; BMI 38.8
--- NOTE | 2024-09-24 09:01 | ED.GENADULT ---
HPI - General Adult General Chief complaint: Upper Respiratory Symptoms Stated complaint: sore throat l side head pain spitting blood Time Seen by Provider: 09/24/24 08:59 Source: patient Mode of arrival: ambulatory Limitations: no limitations History of Present Illness ED Provider: ROGERS GARCIA PA-C HPI narrative: 39 year old female presents to the ED today for evaluation of left sided sore throat x24 hours. Admits to associated chills. No documented fevers. Reports recent strep exposure. Took OTC Tylenol without much improvement - last dose yesterday. Tolerating PO. No vomiting. No dental pain, dysphasia. She reports hx of enlarged cervical LN requiring surgical removal. She is currently following with her PCP for this who has referred her to ENT. Related Data Previous Rx's ?Medication ?Instructions ?Recorded sertraline 25 mg tablet 25 mg PO DAILY #30 tabs 01/27/23 acetaminophen 325 mg capsule 325 mg PO Q4H PRN pain #30 caps 07/20/23 (Tylenol) ibuprofen 600 mg tablet 600 mg PO Q6H PRN fever or pain 07/20/23 #30 tabs loperamide 2 mg capsule 2 mg PO Q6H PRN loose stool #20 07/20/23 caps ondansetron 4 mg disintegrating 4 mg PO Q6H PRN nausea and 07/20/23 tablet vomiting #14 tabs amoxicillin 500 mg tablet 500 mg PO BID 7 days #14 tabs 09/15/24 ibuprofen 600 mg tablet 600 mg PO Q8H PRN pain #30 tabs 09/15/24 benzocaine 15 mg-menthol 2.6 mg 1 lucia mucous membrane Q2-4H PRN 09/24/24 lozenges (Cepacol Sore Throat sore throat #16 ea (benzocaine-menthol)) penicillin V potassium 500 mg 500 mg PO BID 10 days #20 tabs 09/24/24 tablet Allergies Allergy/AdvReac Type Severity Reaction Status Date / Time No Known Allergies Allergy Verified 09/24/24 08:58 Review of Systems Review of Systems: Constitutional: No fever, chills, fatigue, night sweats, weight changes ENT/Mouth: No ear pain, hearing loss, nasal congestion, sinus pain, rhinorrhea, +sore throat Eyes: No eye pain, swelling, redness, vision changes, discharge Cardio: No chest pain, palpitations, [place], orthopnea, peripheral edema Pulm: No SOB, cough, sputum, wheezing, dyspnea, hemoptysis GI: No nausea, vomiting, hematemesis, abdominal pain, diarrhea, constipation, hematochezia, melena : No irregular bleeding, dysuria, frequency, urgency, hesitancy, hematuria, flank pain, urinary flow changes, urinary incontinence or retention MSK: No back pain, neck pain, joint pain, myalgias Skin: No lesions, rashes Neuro: No weakness, numbness, paresthesias, LOC, dizziness, headache Psych: No anxiety/panic, depression, SI/HI, AH/VH All other systems reviewed and are negative. [facility] Past Medical History Attestation statement: The following information was validated with the patient. Source: old records reviewed and nursing notes reviewed Medical History Varicose veins of bilateral lower extremities with pain Surgical History History of excision of mass History of cholecystectomy Family History Family History Father Diabetes Mother Arthritis Sister Carpal tunnel syndrome Brother Asthma Family/Other Diabetes Asthma Hypertension Social History Social History Housing: Apartment Alcohol intake: never Patient Tobacco Use Status: Current everyday Tobacco user Tobacco use type: Cigarette Cigarette Packs Per Day: 0.5 e-Cigarette/Vaping Use: Never Used Second Hand Smoke Exposure: No Advance Directives: No Advance Directives Information Provided: Yes service: No Current occupational status: employed Current occupational exposures/hazards: No Cognitive needs: No Hearing needs: No Vision needs: Yes Physical Exam ED Vital Signs: Vital Signs - 24 hr 09/24/24 08:56 09/24/24 12:42 09/24/24 14:21 Temperature 98.5 F 98.5 F 98.4 F Pulse Rate 112 H 104 H 100 Respiratory Rate 18 14 20 Blood Pressure 132/87 138/82 126/87 Pulse Oximetry 98 97 98 Oxygen Delivery Method Room Air Room Air Room Air 09/24/24 14:40 Temperature 98.4 F Pulse Rate 100 Respiratory Rate 20 Blood Pressure 126/87 Pulse Oximetry 98 Oxygen Delivery Method Room Air BMI result Body Mass Index 38.8 Tachycardic, afebrile. Not hypoxic. Satting 98% on room air General: Well appearing, in no acute distress. Skin: Warm, dry, intact. No rashes or lesions. Head: Normocephalic, atraumatic. EENT: Hearing is intact b/l. Conjunctiva clear. Sclera is anicteric. PERRLA. EOM intact. No facial edema. Tongue and lips wnl. multiple dental caries and poor dentition. no periapical swelling. No pointing. No edema to buccal mucosa. Posterior oropharynx erythematous with bilateral tonsillar hypertrophy/edema, tonsillar exudates noted to left. Uvula midline. No muffled voice. Controlling secretions and speaking in complete sentences. Bilateral submandublar and cervical lymphadenopathy. no anterior neck swelling. Cardiac: Chest wall symmetric. RRR Lungs: Normal respiratory effort without accessory muscle use. CTA bilaterally Abdomen: Soft, non-tender, non-distended. No rebound tenderness or guarding Ext: Upper and lower extremities atraumatic, without tenderness, deformity, swelling or erythema Neuro: AOx3. Normal speech. Ambulating with steady gait Course Course Course Narrative: 1210 -- Leukocytosis to 23.1 with left shift. No anemia. H&H stable. CRP elevated to 9.86. No acute electrolyte abnormality requiring intervention. No MELISSA. Liver function WNL. Negative COVID, flu, RSV. Negative mono. Positive strep. > patient's white count is quite elevated, even for strep throat. She denies any recent steroid use. I do not have any other reason for her white count to be this high. Discussed CT scan soft tissues neck to rule out abscess or deep fluid collection. She is agreeable with this. IV established, imaging ordered. IV fluids running. 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 I have reviewed imaging. I do not appreciate any peritonsillar or retropharyngeal abscess on imaging however official report has not resulted. I informed patient that she will need to sign out against medical advice. discussed all risk associated with this - she is agreeable to sign out AMA. As her strep is positive, will send penicillin to pharmacy for treatment. her vitals have remained stable and airway is patent. Discussed worrisome signs and symptoms and when to return to the ED. Medications Administered Discontinued Medications Generic Name Dose Route Start Last Admin Trade Name Lora PRN Reason Stop Dose Admin Dexamethasone Sodium Phosphate 10 mg 09/24/24 09:23 09/24/24 10:52 Dexamethasone Sod Phosphate 10 Mg/Ml Vial IVPUSH 09/24/24 09:24 10 mg ONCE ONE Administration Sodium Chloride 1,000 mls @ 999 mls/hr 09/24/24 13:00 09/24/24 13:38 Ns IV 09/24/24 14:00 999 mls/hr .Q1H1M KEATON Administration Iohexol 100 ml 09/24/24 14:00 09/24/24 14:00 Iohexol 350 Mg/Ml 100 Ml Infus..Btl IV 09/24/24 14:01 60 ml ONCE ONE Administration Medical Decision Making Medical Decision Making [facility] Narrative: 39 year old female presents to the ED today for evaluation of left sided sore throat x24 hours. patient is tachycardic, afebrile. she is nontoxic appearing, in NAD. on exam, posterior oropharynx erythematous with bilateral tonsillar hypertrophy/edema, tonsillar exudates noted to left. Uvula midline. No muffled voice. Controlling secretions and speaking in complete sentences. Bilateral submandublar and cervical lymphadenopathy. no anterior neck swelling. Clinical concern for strep throat, mono, viral syndrome. Lower suspicion for [employer], retropharyngeal abscess, dental abscess, epiglottis. Plan for screening labs, viral/strep swabs, mono PO decadron ordered Differential Diagnosis Differential Diagnoses: The differential diagnosis associated with the presentation includes as above. Admission/Observation Not indicated Lab Data [facility] Lab Attestation statement: I reviewed the patient's lab results. as above 09/24/24 11:33 09/24/24 11:33 Labs: Lab Results 09/24/24 09/24/24 Range/Units 09:56 11:33 WBC 23.1 H (4.8-10.8) X10*3/uL RBC 5.16 (4.20-5.50) X10*6/uL Hgb 14.3 (12.0-16.0) g/dl Hct 42.9 (37.0-47.0) % MCV 83.1 (80.0-98.0) fL MCH 27.7 (27.0-33.0) pg MCHC 33.3 (31.0-35.0) g/dl RDW 13.7 (11.0-16.0) % Plt Count 220 (160-400) X10*3/uL MPV 11.7 (9.4-12.3) fL Immature Gran % (Auto) 0.6 H (0.0-0.4) % Neut % (Auto) 83.6 H (45-73) % Lymph % (Auto) 9.5 L (20-40) % [place] % (Auto) 5.1 (2-11) % Eos % (Auto) 0.8 (0-4) % Baso % (Auto) 0.4 (0-2) % Lymph # (Auto) 2.2 (1.2-4.9) X10*3/uL [place] # (Auto) 1.2 (0.1-1.2) X10*3/uL Eos # (Auto) 0.2 (0.0-0.4) X10*3/uL Baso # (Auto) 0.1 (0.0-0.2) X10*3/uL Abs Immat Gran (auto) 0.14 H (0.00-0.03) X10*3/uL Absolute Neuts (auto) 19.3 H (2.0-8.3) x10*3/uL Absolute Nucleated RBC 0.000 (0.0-0.012) X10*3/uL Nucleated RBC % (auto) 0.0 (0.0-0.2) /100WBC Sodium 137 (135-145) mmol/L Potassium 4.5 (3.3-5.1) mmol/L Chloride 106 (96-108) mmol/L Carbon Dioxide 23 (22-29) mmol/L Anion Gap 13 (12-20) BUN 8 L (9-16) mg/dL Creatinine 0.59 (0.5-1.4) mg/dL Estim Creat Clear Calc 152.1 Estimated GFR > 60 Random Glucose 101 (60-115) mg/dL Calcium 9.7 D (8.4-10.2) mg/dL Magnesium 2.1 (1.6-2.6) mg/dL Total Bilirubin 0.5 (0.0-1.0) mg/dL AST 17 (5-31) U/L ALT 14 (0-31) U/L Alkaline Phosphatase 100 (39-117) U/L C-Reactive Protein 9.86 H (< or = 0.50) mg/dL Total Protein 7.6 (6.5-8.0) g/dL Albumin 4.3 (3.5-5.0) g/dL Monoscreen Negative (Negative) Influenza Type A (PCR) NEGATIVE (Negative) Influenza Type B (PCR) NEGATIVE (Negative) RSV RNA Qual (PCR) NEGATIVE (Negative) SARS-CoV-2 RNA (RT-PCR) NEGATIVE (Negative) S. pyogenes GrpA LEXX Positive A (Negative) External Record Review External record reviewed: Inpatient record Prescription Management I considered prescription management with: Pain Medication and Antibiotic (Penicillin) Social Determinants Patient?s care significantly limited by Social Determinants of Health including: Other Social Determinant of Health Critical Care Time Critical Care Time Critical Care Time: Yes Total Critical Care Time: 34 Attestation: Critical care time in the amount of 34 minutes has been provided to the patient in terms of direct patient care, frequent reevaluation, review and interpretation of medical data and results, and management of potentially life-threatening conditions. This is all outside of any medical procedures. Discharge Plan Discharge Clinical Impression: Acute streptococcal pharyngitis Patient Disposition: Left Against Medical Advice Instructions: Strep Throat (ED) Additional Instructions: You were seen in the ED today for evaluation of sore throat. Your blood work shows high white count, concerning for infection. You tested positive for strep throat. You are choosing to leave the ED against medical advise before the CT scan of your neck has resulted. This imaging will help us to evaluate for abscess. Risks of leaving the ED without these results were discussed with you. Regardless, penicillin is an antibiotic that has been sent to your pharmacy. Take this twice daily for the next 10 days to treat strep throat. Do not stop taking these antibiotics early or miss any doses as this may cause infection to return or worsen. Cepacol throat lozenges have been sent to your pharmacy to help with throat pain. You may also purchase [id number] chloraseptic spray to numb your throat. Take Tylenol and ibuprofen as needed for body aches or fevers. Make sure to change your toothbrush as this contains bacteria. Strep throat is contagious. If anyone else in your household is exhibiting symptoms, please advise them to come to the ED, urgent care, or to see their primary care provider. Follow up with your primary care provider this week. Return to the Emergency Department if you experience worsening or uncontrolled pain, tongue swelling, difficulty swallowing, change in your voice, difficulty breathing, fevers 100.4?F or greater, recurrent vomiting, development of a rash, or any other concerning symptoms. In the case of emergency, call 911.? Prescriptions: New penicillin V potassium 500 mg tablet 500 mg PO BID 10 Days Qty: 20 0RF Cepacol Sore Throat (deven-men) 15-2.6 mg lozenge 1 lucia mucous membrane Q2-4H PRN (Reason: sore throat) Qty: 16 0RF No Action amoxicillin 500 mg tablet 500 mg PO BID 7 Days Qty: 14 0RF ibuprofen 600 mg tablet 600 mg PO Q8H PRN (Reason: pain) Qty: 30 0RF loperamide 2 mg capsule 2 mg PO Q6H PRN (Reason: loose stool) Qty: 20 0RF ibuprofen 600 mg tablet 600 mg PO Q6H PRN (Reason: fever or pain) Qty: 30 0RF ondansetron 4 mg tablet,disintegrating 4 mg PO Q6H PRN (Reason: nausea and vomiting) Qty: 14 0RF acetaminophen [Tylenol] 325 mg capsule 325 mg PO Q4H PRN (Reason: pain) Qty: 30 0RF sertraline 25 mg tablet 25 mg PO DAILY Qty: 30 1RF Referrals: Angie Cortez MD [Primary Care Provider] - Stand Alone Forms: Against Medical Advice Interventions: ED Discharge Assessment Last Done: 09/24/24 14:40 Discharge Date/Time: 09/24/24 14:40 Print Language: [place] Citizen
--- NOTE | 2024-09-24 10:01 | PC.NURSE ---
Unsuccessful IV insertion due to patient jerking her left arm backwards rapidly during needle insertion. Unable to obtain lab specimens either due to this. Making another attempt at this time. COVID/Flu/RSV & Strep A swabs collected and sent for analysis. Results pending.
[2024-09-24 10:09] LABS: IDNOW Serial# 58CA691E; Strep A Nucleic Acid Positive (Negative)
--- NOTE | 2024-09-24 10:13 | PC.NURSE ---
Another unsuccessful IV insertion attempt. FLORINDA Quinn aware.
[2024-09-24 10:38] LABS: Influenza A PCR NEGATIVE (Negative); Influenza B PCR NEGATIVE (Negative); Resp Syncy Virus RNA Qual PCR NEGATIVE (Negative); SARS COV2 PCR INHOUSE NEGATIVE (Negative)
[2024-09-24] MEDS: dexAMETHasone sod phosphate 10 MG/ML VIAL IVPUSH (10:52)
--- NOTE | 2024-09-24 11:13 | PC.NURSE ---
Patient has been stuck multiple times without success (5 times as of this note). FLORINDA Quinn aware. Strep positive. Medicated per orders. Care ongoing by this RN.
--- NOTE | 2024-09-24 11:19 | PC.NURSE ---
Called phlebotomy. Staff member from phlebotomy to attempt lab draw.
[2024-09-24 11:37] LABS: MANUAL DIFF FLAG NO
[2024-09-24 11:45] LABS: Basophils Absolute Auto 0.1 X10*3/uL (0.0-0.2); Basophils Percent Auto 0.4 % (0-2); Eosinophils Absolute Auto 0.2 X10*3/uL (0.0-0.4); Eosinophils Percent Auto 0.8 % (0-4); Hematocrit 42.9 % (37.0-47.0); Hemoglobin 14.3 g/dl (12.0-16.0); Imm Gran Abs Auto 0.14 X10*3/uL (0.00-0.03); Imm Gran Pct Auto 0.6 % (0.0-0.4); Lymphocytes Absolute Auto 2.2 X10*3/uL (1.2-4.9); Lymphocytes Percent Auto 9.5 % (20-40); Mean Corpuscular HGB Conc 33.3 g/dl (31.0-35.0); Mean Corpuscular Hemoglobin 27.7 pg (27.0-33.0); Mean Corpuscular Volume 83.1 fL (80.0-98.0); Mean Platelet Volume 11.7 fL (9.4-12.3); Monocytes Absolute Auto 1.2 X10*3/uL (0.1-1.2); Monocytes Percent Auto 5.1 % (2-11); Neutrophils Absolute Auto 19.3 x10*3/uL (2.0-8.3); Neutrophils Percent Auto 83.6 % (45-73); Platelet Count 220 X10*3/uL (160-400); Red Blood Count 5.16 X10*6/uL (4.20-5.50); Red Cell Distribution Width 13.7 % (11.0-16.0); White Blood Count 23.1 X10*3/uL (4.8-10.8)
[2024-09-24 11:56] LABS: Monotest Negative (Negative)
[2024-09-24 12:00] LABS: Alanine Aminotransferase 14 U/L (0-31); Albumin Level 4.3 g/dL (3.5-5.0); Alkaline Phosphatase 100 U/L (39-117); Anion Gap 13 (12-20); Aspartate Amino Transferase 17 U/L (5-31); Bilirubin Total 0.5 mg/dL (0.0-1.0); Blood Urea Nitrogen 8 mg/dL (9-16); C Reactive Protein 9.86 mg/dL (< or = 0.50); Calcium 9.7 mg/dL (8.4-10.2); Carbon Dioxide 23 mmol/L (22-29); Chloride 106 mmol/L (96-108); Creatinine Clr Calc Pharmacy 152.1; Estimated Glomerular Filt Rate > 60; Glucose Random 101 mg/dL (60-115); Magnesium 2.1 mg/dL (1.6-2.6); Potassium 4.5 mmol/L (3.3-5.1); Sodium 137 mmol/L (135-145); Total Protein 7.6 g/dL (6.5-8.0)
--- NOTE | 2024-09-24 12:31 | PC.NURSE ---
Successful IV insertion by Ebony Mccullough RN. 20g IV access to right forearm, ordered to obtain CT scan with contrast.
[2024-09-24 12:42] VITALS: BP 138/82; PULSE 104; RESP 14; TEMP 36.9; O2SAT 97
[2024-09-24] MEDS: 0.9 % Sodium Chloride 1,000 ML 999 ML IV (13:38)
[2024-09-24] MEDS: iohexoL 350 MG/ML 100 ML INFUS..BTL IV (14:00)
[2024-09-24 14:21] VITALS: BP 126/87; PULSE 100; RESP 20; TEMP 36.9; O2SAT 98
[2024-09-24 14:40] VITALS: BP 126/87; PULSE 100; RESP 20; TEMP 36.9; O2SAT 98
== END 2024-09-24 14:40 | disposition left against medical advice (07) ==
PROVIDERS: Physician Assistant Medical; Emergency Provider Emergency Medicine Emergency Medical Services; PCP Internal Medicine
DX: J02.0 Streptococcal pharyngitis (principal); R51.9 Headache, unspecified; R04.2 Hemoptysis; M54.2 Cervicalgia; R11.0 Nausea; F17.210 Nicotine dependence, cigarettes, uncomplicated; Z03.818 Encounter for observation for suspected exposure to other biological agents ruled out; Z79.899 Other long term (current) drug therapy
CPT/HCPCS: 0241U; 36415; 70491; 80053; 83735; 85025; 86140; 86308; 87651; 96361; 96374; 99284; J1100; Q9967

== ENCOUNTER → 2024-09-24 12:11 | Outpatient (BNV) | payer OTHER, SELFPAY | PROVIDERS: Emergency Provider Emergency Medicine Emergency Medical Services; PCP Internal Medicine; Visit Provider Radiology Diagnostic Radiology | DX: J03.90 Acute tonsillitis, unspecified (principal) | CPT/HCPCS: 70491 ==

== ENCOUNTER 2024-10-12 14:33 | Outpatient (AMB) | payer OTHER, SELFPAY ==
--- NOTE | 2024-10-12 14:38 | A.OFFPC_ITS ---
Vital Signs 10/12/24 14:39 Height 5 ft 4 in Weight 218 lb BMI 37.4 BP 114/80 Blood Pressure Location Lt brachial Position Sitting Pulse 99 Pulse Source Pulse Oximeter Temp 97.3 F Temp Source Temporal Artery Scan Pulse Oximetry (%) 98 Oxygen Delivery Method Room Air Intake Visit Reasons: [facility] 09/24 High BP/Positive Strep throat Cnc Technician Required: No Accompanied by: Self / Same As Patient Allergies No Known Allergies Allergy (Verified 10/12/24 14:51) Tobacco use date assessed: 10/12/24 Dental Screening Dental Screen Date: 10/12/24 Did you have a dental visit in the last 12 months?: Yes Did you have a dental problem in the last 6 months where you did not have access to dental care?: No Was dental information given to patient?: Patient has dentist HPI HPI Comments History of Present Illness Details 39 y/o Female patient who presents to [facility] today for EDF. Pt was admitted at [facility] on 09/24 for an evaluation and treatment of Acute Bacterial Pharyngitis. CT Scan showed Reactive lymphadenopathy in the anterior cervical chains bilaterally, left greater than right. This is a chronic issue - s/p Surgery on her Right Cervical lymph nodes back in ?2013 with ENT (at [place], [place]). Pt would like to be referred back to them. PENDING SALE TO [facility] Medical History (Updated 10/12/24 @ 15:44 by Gabriella Antonio NP) Acute bacterial pharyngitis Reactive cervical lymphadenopathy Varicose veins of bilateral lower extremities with pain Surgical History History of excision of mass History of cholecystectomy Family History Father Diabetes Mother Arthritis Sister Carpal tunnel syndrome Brother Asthma Family/Other Diabetes Asthma Hypertension Social History Housing: Apartment Alcohol intake: never Patient Tobacco Use Status: Current everyday Tobacco user Tobacco use type: Cigarette Cigarette Packs Per Day: 0.5 e-Cigarette/Vaping Use: Never Used Second Hand Smoke Exposure: No service: No Current occupational status: employed Current occupational exposures/hazards: No Cognitive needs: No Hearing needs: No Vision needs: Yes Questionnaire PHQ-9 Over the last 2 weeks, how often have you been bothered by any of the following problems? 1. Little interest or pleasure in doing things: not at all 2. Feeling down, depressed, or hopeless: not at all 3. Trouble falling or staying asleep, or sleeping too much: more than half the days 4. Feeling tired or having little energy: not at all 5. Poor appetite or overeating: several days 6. Feeling bad about yourself - or that you are a failure or have let yourself or your family down: not at all 7. Trouble concentrating on things, such as reading the newspaper or watching television: not at all 8. Moving or speaking so slowly that other people could have noticed. Or the opposite - being so fidgety or restless that you have been moving around a lot more than usual: not at all 9. Thoughts that you would be better off or of hurting yourself in some way: not at all Total score: 3 10299 - PHQ-9 Billing: Yes Source: Developed by Drs. Jose Angel Blanc, Angela Rowan, Steven Mo and colleagues, with an educational balaji from [employer]. Thrive Questionnaire Date Thrive assessed: 10/12/24 I am a: Patient What is your living situation today?: I choose not to answer this question Within the past 12 months, did the food you bought not last and you didn't have the money to get more?: Sometimes True Within the past 12 months, did you worry whether your food would run out before you got money to buy more?: Sometimes True Do you have trouble paying for medicines?: No Do you have trouble getting transportation to medical appointments?: No Do you have trouble paying your heating and electricity bill?: Yes Do you have trouble taking care of your child, family member or friend?: No Do you have trouble with day-to-day activities such as bathing, preparing meals, shopping, managing finances, etc.?: No Are you currently unemployed and looking for a job?: No Are you interested in more education?: No Please select the resources that you would like help with: Food and Utilities Currently or been in a relationship where the following occur: No concerns reported THRIVE Score: 3 AUDIT C Alcohol Use Questionnaire (AUDIT-C) 1. How often do you have a drink containing alcohol?: Never 3. How often do you have six or more drinks on one occasion?: Never Total Score: 0 ASHLEE-7 AMB Questionnaire ASHLEE-7 Date ASHLEE - 7 assessed: 10/12/24 Feeling nervous, anxious, or on edge: 0 = Not at all Not being able to stop or control worryin = Not at all Worrying too much about different things: 0 = Not at all Trouble relaxin = Several days Being so restless that it is hard to sit still: 0 = Not at all Becoming easily annoyed or irritable: 0 = Not at all Feeling afraid as if something awful might happen: 0 = Not at all Total ASHLEE-7 score (0-4 normal; 5-9 mild; 10-14 moderate; 15-21 severe): 1 Source: Developed by Drs. Jose Angel Blanc, Angela Rowan, Steven Mo and colleagues, with an educational balaji from [employer]. ASHLEE-7 Assessment Billing ASHLEE-7 Assessment Tool: ASHLEE-7 Assessment 58864 Review of Systems Const All systems reviewed & are unremarkable except as noted in HPI and below Physical exam (Primary Care) Vital Signs: Last Vital Signs Temp 97.3 F 10/12/24 14:39 Pulse 99 10/12/24 14:39 BP 114/80 10/12/24 14:39 Pulse Ox 98 10/12/24 14:39 Oxygen Delivery Method Room Air 10/12/24 14:39 BMI result Body Mass Index 37.4 Tobacco/Smoking Status: Tobacco use Status Tobacco use date assessed 10/12/24 10/12/24 14:52 Patient Tobacco Use Status Current everyday Tobacco 10/12/24 14:40 Tobacco use type Cigarette 10/12/24 14:40 e-Cigarette/Vaping Use Never Used 10/12/24 14:40 PHQ-9: PHQ-9 Score PHQ-9: Total score 3 10/12/24 14:52 Thrive Assessment: Date of Thrive Assessment Date Thrive assessed 10/12/24 10/12/24 14:52 Currently or been in a relationship where the following occur: No concerns reported Const General: no acute distress Nutritional Appearance: overweight Orientation/consciousness: patient oriented x3 HENMT Mouth: moist mucous membranes and Abnormal oral and palatal mucosa present erythematous Throat: Yes uvula midline and Yes abnormal tonsil (Enlarged Tonsils +3 ) Neck Neck: Yes trachea midline and Yes lymphadenopathy (B/L cervical Nodes.) Resp Effort & Inspection: normal respiratory effort Cardio Heart sounds: S1 normal heart sound present and S2 normal heart sound present Neuro General: patient oriented x3 Coding Level of Care Code Est Pt Level 4 (50712) Diagnoses Reactive cervical lymphadenopathy R59.0 Acute bacterial pharyngitis J02.8; B96.89 Additional Codes ASHLEE-7 Assessment Billing - ASHLEE-7 Assessment Tool: ASHLEE-7 Assessment 86403 ([id number]) PHQ-9 - 47791 - PHQ-9 Billing: Yes ([id number]) Time Spent (min) 20 Assessment & Plan Assessment & Plan (1) Reactive cervical lymphadenopathy: Code(s): R59.0 - Localized enlarged lymph nodes Category: Medical Plan: Ordered Prednisone for 10 days. Placed referral to ENT. (2) Acute bacterial pharyngitis: Code(s): J02.8 - Acute pharyngitis due to other specified organisms; B96.89 - Other specified bacterial agents as the cause of diseases classified elsewhere Category: Medical Plan: Resolved Orders: Referrals Ear/Nose/Throat Referral R59.0 - Localized enlarged lymph nodes Medications: New prednisone 20 mg PO DAILY 10 tabs 0RF R59.0 - Localized enlarged lymph nodes
[2024-10-12 14:39] VITALS: BP 114/80; PULSE 99; TEMP 36.3; O2SAT 98; BMI 37.4
== END 2024-10-12 16:19 | disposition home or self-care (01) ==
LOC: HO.HMCH 14:34
PROVIDERS: PCP Internal Medicine; Visit Provider Nurse Practitioner Family
DX: R59.0 Localized enlarged lymph nodes (principal); J02.8 Acute pharyngitis due to other specified organisms; B96.89 Other specified bacterial agents as the cause of diseases classified elsewhere

== ENCOUNTER → 2024-10-12 14:33 | Outpatient (BNVA) | payer OTHER, SELFPAY | PROVIDERS: PCP Internal Medicine; Visit Provider Nurse Practitioner Family | DX: R59.0 Localized enlarged lymph nodes (principal); J02.8 Acute pharyngitis due to other specified organisms; B96.89 Other specified bacterial agents as the cause of diseases classified elsewhere | CPT/HCPCS: 96127; 99212 ==

== ENCOUNTER 2025-04-17 13:35 | Outpatient (AMB) | payer OTHER, SELFPAY ==
--- NOTE | 2025-04-17 13:52 | MHC.PC.OV ---
Vital Signs 04/17/25 13:53 Height 5 ft 4 in Weight 233 lb 6 oz BMI 40.1 BP 120/80 Blood Pressure Location Lt brachial Position Sitting Pulse 105 H Pulse Source Pulse Oximeter Temp 97.1 F Temp Source Temporal Artery Scan Pulse Oximetry (%) 98 Oxygen Delivery Method Room Air Intake Visit Reasons: A lot of pain in my right leg and my neck both julia E Commerce Marketing Manager Required: No Staffing Administrator: Not Required per policy Accompanied by: Self / Same As Patient Allergies No Known Allergies Allergy (Verified 04/17/25 14:02) Medication List - Last Reconciled 04/17/25 by Angie Puentes MD acetaminophen (Tylenol) 325 mg PO Q4H PRN ibuprofen 600 mg PO Q8H PRN loperamide 2 mg PO Q6H PRN ondansetron 4 mg PO Q6H PRN sertraline 25 mg PO DAILY Tobacco use date assessed: 04/17/25 Dental Screening Dental Screen Date: 10/12/24 HPI HPI Comments History of Present Illness Details This is a 39 year old female that complaints of right knee pain that started few weeks ago. No previous trauma. She also has submandibular lymphadenopathy bilateral that has been present for over 6 months. No fever. No rash. [facility] Medical History (Updated 04/17/25 @ 14:13 by Angie Puentes MD) Acute bacterial pharyngitis Reactive cervical lymphadenopathy Varicose veins of bilateral lower extremities with pain Surgical History History of excision of mass History of cholecystectomy Family History Father Diabetes Mother Arthritis Sister Carpal tunnel syndrome Brother Asthma Family/Other Diabetes Asthma Hypertension Social History Housing: Apartment Alcohol intake: never Patient Tobacco Use Status: Current everyday Tobacco user Tobacco use type: Cigarette Cigarette Packs Per Day: 0.5 Cigarettes Per Day: 7 e-Cigarette/Vaping Use: Never Used Second Hand Smoke Exposure: Yes service: No Current occupational status: employed Current occupational exposures/hazards: No Cognitive needs: No Hearing needs: No Vision needs: Yes Questionnaire Thrive Questionnaire Date Thrive assessed: 10/12/24 I am a: Patient What is your living situation today?: I choose not to answer this question Within the past 12 months, did the food you bought not last and you didn't have the money to get more?: Sometimes True Within the past 12 months, did you worry whether your food would run out before you got money to buy more?: Sometimes True Do you have trouble paying for medicines?: No Do you have trouble getting transportation to medical appointments?: No Do you have trouble paying your heating and electricity bill?: Yes Do you have trouble taking care of your child, family member or friend?: No Do you have trouble with day-to-day activities such as bathing, preparing meals, shopping, managing finances, etc.?: No Are you currently unemployed and looking for a job?: No Are you interested in more education?: No Currently or been in a relationship where the following occur: No concerns reported THRIVE Score: 3 ASHLEE-7 AMB Questionnaire ASHLEE-7 Date ASHLEE - 7 assessed: 10/12/24 Source: Developed by Drs. Jose Angel Blanc, Angela Rowan, Steven Mo and colleagues, with an educational balaji from [employer]. Review of Systems Const All systems reviewed & are unremarkable except as noted in HPI and below Card Denies chest pain at rest, Denies chest pain with activity, Denies edema, Denies irregular heart rhythm, Denies claudication, Denies dyspnea, Denies dyspnea on exertion, Denies orthopnea, Denies paroxysmal nocturnal dyspnea and Denies slow heart rate Resp Denies cough, Denies dyspnea and Denies dyspnea on exertion Musc Denies atrophy, Denies deformity and Denies limited range of motion Skin/Breast Denies bleeding lesions, Denies changing lesions and Denies rash Physical exam (Primary Care) Vital Signs: Last Vital Signs Temp 97.1 F 04/17/25 13:53 Pulse 105 H 04/17/25 13:53 BP 120/80 04/17/25 13:53 Pulse Ox 98 04/17/25 13:53 Oxygen Delivery Method Room Air 04/17/25 13:53 BMI result Body Mass Index 40.1 BMI Assessment/Plan discussion: High BMI High, discussed plan: lifestyle, weight reduction, dietary and physical activity Tobacco/Smoking Status: Tobacco use Status Tobacco use date assessed 04/17/25 04/17/25 13:57 Patient Tobacco Use Status Current everyday Tobacco 04/17/25 13:57 Tobacco use type Cigarette 04/17/25 13:57 e-Cigarette/Vaping Use Never Used 04/17/25 13:57 Thrive Assessment: Date of Thrive Assessment Date Thrive assessed 10/12/24 04/17/25 13:57 Currently or been in a relationship where the following occur: No concerns reported Resp Effort & Inspection: normal respiratory effort Auscultation: clear to auscultation bilaterally Cardio Jugular venous distension: no JVD Rate: regular rate Rhythm: regular rhythm Heart sounds: S1 normal heart sound present and S2 normal heart sound present Extrem General: Yes full ROM Coding Level of Care Code Est Pt Level 3 (15615) Diagnoses Right knee pain M25.561 Submandibular lymphadenopathy R59.0 Time Spent (min) 19 Assessment & Plan Assessment & Plan (1) Right knee pain: Code(s): M25.561 - Pain in right knee Category: Medical (2) Submandibular lymphadenopathy: Comment: bilateral Code(s): R59.0 - Localized enlarged lymph nodes Category: Medical Plan XR knee ordered. US neck. Orders: Orders XR knee LT 2V 04/17/25 M25.562 - Pain in left knee XR knee RT 2V 04/17/25 M25.561 - Pain in right knee Comprehensive [place]. Panel Fast 04/17/25 E66.01 - Morbid (severe) obesity due to excess calories Thyroid Stimulating Hormone 04/17/25 E66.01 - Morbid (severe) obesity due to excess calories US soft tiss head and/or neck 04/17/25 R59.0 - Localized enlarged lymph nodes Lipid Panel 04/17/25 E66.01 - Morbid (severe) obesity due to excess calories, E78.5 - Hyperlipidemia, unspecified Complete Blood Count Auto Diff 04/17/25 E66.01 - Morbid (severe) obesity due to excess calories Referrals Vascular Surgery Referral I83.813 - Varicose veins of bilateral lower extremities with pain Medical Weight Management Referral E66.01 - Morbid (severe) obesity due to excess calories
[2025-04-17 13:53] VITALS: BP 120/80; PULSE 105; TEMP 36.2; O2SAT 98; BMI 40.1
== END 2025-04-17 14:13 | disposition home or self-care (01) ==
LOC: HO.HMCH 13:36
PROVIDERS: PCP Internal Medicine; Visit Provider Internal Medicine
DX: M25.561 Pain in right knee (principal); R59.0 Localized enlarged lymph nodes

== ENCOUNTER → 2025-04-17 13:35 | Outpatient (BNVA) | payer OTHER, SELFPAY | PROVIDERS: PCP Internal Medicine; Visit Provider Internal Medicine | DX: M25.561 Pain in right knee (principal); R59.0 Localized enlarged lymph nodes | CPT/HCPCS: 99212 ==